=== PATIENT | male | born 1980 | race Caucasian/White ===

== ENCOUNTER 2018-10-31 22:05 | Emergency (ER) | payer OTHER ==
[2018-10-31 23:10] VITALS: TEMP 98.5; BMI 28.2
[2018-11-01] MEDS ORDERED: ACETAMINOPHEN/CAFFEINE/BUTALBITAL 1 TAB PO ONE (01:29)
[2018-11-01] MEDS ORDERED: diphenhydrAMINE HCL 25 MG CAPSULE (FP) PO ONE ×2 (01:29→01:34)
[2018-11-01] MEDS ORDERED: METOCLOPRAMIDE HCL INJECTION 10 MG/2 ML VIAL IM ONE (01:29)
[2018-11-01] MEDS ORDERED: ACETAMINOPHEN/CAFFEINE/BUTALBITAL 1 TAB ONE (01:34)
[2018-11-01] MEDS ORDERED: METOCLOPRAMIDE HCL INJECTION 10 MG/2 ML VIAL ONE (01:34)
[2018-11-01] MEDS ORDERED: amLODIPine BESYLATE 10 MG TABLET (FP) PO ONE (04:08)
[2018-11-01] MEDS ORDERED: ACETAMINOPHEN 500 MG TABLET (FP) PO ONE (04:09)
--- NOTE | 2018-11-01 04:09 | PDOC ---
Documentation entered by Viraj Witt SCRIBE, acting as scribe for Amy Santos MD. Amy Santos MD: This documentation has been prepared by the Miryam leblanc Nirvannie, SCRIBE, under my direction and personally reviewed by me in its entirety. I confirm that the documentation accurately reflects all work, treatment, procedures, and medical decision making performed by me. History of Present Illness - General History Source: Patient Exam Limitations: No Limitations - History of Present Illness Initial Comments: 11/01/18 01:36 The patient is a 38 year old male, with a significant past medical history of recently diagnosed with HTN a week ago (Amlodipine 10mg), who presents to the emergency department with, 4 days of intermittent migraine which became constant today. He notes taking Ibuprofen 600mg QID without relief prompting his arrival to the ED. He denies any recent chest pain or shortness of breath. Allergies: NKDA <Amy Santos - Last Filed: 11/01/18 04:11> <Sarwat Fragoso - Last Filed: 11/01/18 04:28> - General Chief Complaint: Headache Stated Complaint: PAIN Time Seen by Provider: 11/01/18 00:01 Past History - Past Medical History COPD: No HTN: Yes - Suicide/Smoking/Psychosocial Hx Smoking History: Never smoked Hx Alcohol Use: Yes Hx Substance Use Treatment: No <Amy Santos - Last Filed: 11/01/18 04:11> <Sarwat Fragoso - Last Filed: 11/01/18 04:28> - Past Medical History Allergies/Adverse Reactions: Allergies Allergy/AdvReac Type Severity Reaction Status Date / Time No Known Allergies Allergy Verified 10/31/18 23:04 Home Medications: Ambulatory Orders Amlodipine Besylate 10 mg PO DAILY 11/01/18 Aspirin/Acetaminophen/Caffeine [Excedrin Migraine Caplet] 1 each PO BID #30 tablet 11/01/18 Ibuprofen 400 mg PO QID PRN 11/01/18 Review of Systems - Review of Systems Able to Perform ROS?: Yes Comments:: 11/01/18 01:38 GENERAL/CONSTITUTIONAL: No fever or chills. No weakness. HEAD, EYES, EARS, NOSE AND THROAT: No change in vision. No ear pain or discharge. No sore throat. CARDIOVASCULAR: No chest pain or shortness of breath. RESPIRATORY: No cough, wheezing, or hemoptysis. GASTROINTESTINAL: No nausea, vomiting, diarrhea or constipation. GENITOURINARY: No dysuria, frequency, or change in urination. MUSCULOSKELETAL: No joint or muscle swelling or pain. No neck or back pain. SKIN: No rash. NEUROLOGIC: +Headache. No vertigo, loss of consciousness, or change in strength/ sensation. ENDOCRINE: No increased thirst. No abnormal weight change. HEMATOLOGIC/LYMPHATIC: No anemia, easy bleeding, or history of blood clots. ALLERGIC/IMMUNOLOGIC: No hives or skin allergy. <Amy Santos - Last Filed: 11/01/18 04:11> *Physical Exam - Vital Signs Last Vital Signs Temp Pulse Resp BP Pulse Ox 98.5 F 74 18 133/80 99 10/31/18 23:04 10/31/18 23:04 10/31/18 23:04 10/31/18 23:04 10/31/18 23:04 - Physical Exam Comments: 11/01/18 01:39 GENERAL: Awake, alert, and fully oriented, in no acute distress HEAD: No signs of trauma EYES: PERRLA, EOMI, sclera anicteric, conjunctiva clear ENT: Auricles normal inspection, hearing grossly normal, nares patent, oropharynx clear without exudates. Moist mucosa NECK: Normal ROM, supple, no lymphadenopathy, JVD, or masses LUNGS: Breath sounds equal, clear to auscultation bilaterally. No wheezes, and no crackles HEART: Regular rate and rhythm, normal S1 and S2, no murmurs, rubs or gallops ABDOMEN: Soft, nontender, normoactive bowel sounds. No guarding, no rebound. No masses EXTREMITIES: Normal range of motion, no edema. No clubbing or cyanosis. No cords, erythema, or tenderness NEUROLOGICAL: Cranial nerves II through XII grossly intact. Normal speech, normal gait. Motor and sensation intact SKIN: Warm, Dry, normal turgor, no rashes or lesions noted <Amy Santos - Last Filed: 11/01/18 04:11> - Vital Signs Last Vital Signs Temp Pulse Resp BP Pulse Ox 98.5 F 91 H 18 125/73 98 10/31/18 23:04 11/01/18 04:24 11/01/18 04:24 11/01/18 04:24 11/01/18 04:24 <Sarwat Fragoso - Last Filed: 11/01/18 04:28> ED Treatment Course - Medications Given in the ED: ED Medications Discontinued Medications Generic Name Dose Route Start Last Admin Trade Name Freq PRN Reason Stop Dose Admin Acetaminophen/Butalbital/Caffeine 1 tablet 11/01/18 01:29 11/01/18 01:41 Fioricet - PO 11/01/18 01:30 1 tablet ONCE ONE Administration Diphenhydramine HCl 50 mg 11/01/18 01:29 11/01/18 01:41 Benadryl - PO 11/01/18 01:30 50 mg ONCE ONE Administration Metoclopramide HCl 10 mg 11/01/18 01:29 11/01/18 01:41 Reglan Injection - IM 11/01/18 01:30 10 mg ONCE ONE Administration <Amy Santos - Last Filed: 11/01/18 04:11> - Medications Given in the ED: ED Medications Discontinued Medications Generic Name Dose Route Start Last Admin Trade Name Freq PRN Reason Stop Dose Admin Acetaminophen 1,000 mg 11/01/18 04:09 11/01/18 04:24 Tylenol - PO 11/01/18 04:10 1,000 mg ONCE ONE Administration Acetaminophen/Butalbital/Caffeine 1 tablet 11/01/18 01:29 11/01/18 01:41 Fioricet - PO 11/01/18 01:30 1 tablet ONCE ONE Administration Amlodipine Besylate 10 mg 11/01/18 04:08 11/01/18 04:24 Norvasc - PO 11/01/18 04:09 10 mg ONCE ONE Administration Diphenhydramine HCl 50 mg 11/01/18 01:29 11/01/18 01:41 Benadryl - PO 11/01/18 01:30 50 mg ONCE ONE Administration Metoclopramide HCl 10 mg 11/01/18 01:29 11/01/18 01:41 Reglan Injection - IM 11/01/18 01:30 10 mg ONCE ONE Administration <Sarwat Fragoso - Last Filed: 11/01/18 04:28> Medical Decision Making - Medical Decision Making 11/01/18 01:48 Pt is having a migraine HENDERSON. He has never had this in the past. No neuro deficits. He has had onset x 4 days. 11/01/18 04:11 Pt feels better, but he feels like the migraine is slowly coming on <Amy Santos - Last Filed: 11/01/18 04:11> - Medical Decision Making 11/01/18 04:28 Patient Name: KEYLA COURTNEY THIS IS A PRELIMINARY REPORT FROM IMAGING NEUROSCIENCE DIRECTOR NA DATE OF SERVICE: 2018-11-01 03:18:23 IMAGES: 180 EXAM: CT HEAD WITHOUT CONTRAST No acute brain parenchymal abnormality. No hemorrhage, mass or acute territorial infarct. Mucoperiosteal thickening paranasal sinuses. Visualized mastoid air cells clear. <Sarwat Fragoso - Last Filed: 11/01/18 04:28> *DC/Admit/Observation/Transfer - Discharge Dispostion Decision to Admit order: No <Amy Santos - Last Filed: 11/01/18 04:11> <Sarwat Fragoso - Last Filed: 11/01/18 04:28> Diagnosis at time of Disposition: Migraine - Discharge Dispostion Disposition: HOME Condition at time of disposition: Improved - Prescriptions Prescriptions: Aspirin/Acetaminophen/Caffeine [Excedrin Migraine Caplet] 1 each PO BID #30 tablet - Referrals Referrals: Will Crane MD [Staff Physician] - - Patient Instructions Printed Discharge Instructions: Migraine -- Adult
[2018-11-01] MEDS ORDERED: amLODIPine BESYLATE 5 MG TABLET (FP) ONE (04:16)
[2018-11-01] MEDS ORDERED: ACETAMINOPHEN 325 MG TABLET (FP) ONE (04:16)
[2018-11-01 04:25] VITALS: BP 125/73; PULSE 91
== END 2018-11-01 04:26 | disposition home or self-care (01) ==
LOC: JER 22:05
PROC: 3E0233Z Introduction of Anti-inflammatory into Muscle, Percutaneous Approach (ICD-10-PCS; principal; 2018-10-31)
DX: G43.909 Migraine, unspecified, not intractable, without status migrainosus (principal); I10 Essential (primary) hypertension
CPT/HCPCS: 70450-TC; 96372; 99281-25

== ENCOUNTER 2019-04-24 20:08 | Emergency (ER) | payer OTHER ==
[2019-04-24 20:16] VITALS: BMI 31.7
--- NOTE | 2019-04-24 20:38 | PDOC ---
History of Present Illness - General Chief Complaint: Chest Pain Stated Complaint: CHEST PAIN/ HIGH BP Time Seen by Provider: 04/24/19 20:37 History Source: Patient Exam Limitations: No Limitations - History of Present Illness Initial Comments: 04/24/19 20:37 PCP: [facility] HPI: 39yo M with PMH HTN presenting with chest pain in the setting of "drinking heavily" last night. Pain is [id number] to prior episodes, seen at [facility] last month with a negative stress test. Patient with similar left chest pain, nonexertional, nonradiating, nonpleuritic, constant, pressure. He reports that he feels like his heart has stopped and he doesn't know what his cholesterol is because it has never been checked. He takes amlodipine besylate for his HTN and reports compliance. Reports that aspirin and garlic have not helped. Drank 2 beer before coming in tonight and subsequently felt nauseous and vomited. Has a physical scheduled for Thursday at his clinic. Denies stimulant use. No fevers, chills, shortness of breath. All: NKDA Meds: Amlodipine PMH: HTN PSH: Denies SHx: "heavy alcohol" denies smoking or illicits Past History - Travel Traveled outside of the country in the last 30 days: No Close contact w/someone who was outside of country & ill: No - Past Medical History Allergies/Adverse Reactions: Allergies Allergy/AdvReac Type Severity Reaction Status Date / Time No Known Allergies Allergy Verified 04/24/19 20:16 Home Medications: Ambulatory Orders Amlodipine Besylate 10 mg PO DAILY 11/01/18 Aspirin/Acetaminophen/Caffeine [Excedrin Migraine Caplet] 1 each PO BID #30 tablet 11/01/18 COPD: No HTN: Yes - Psycho Social/Smoking Cessation Hx Smoking History: Never smoked Hx Alcohol Use: Yes Hx Substance Use Treatment: No Review of Systems - Review of Systems Able to Perform ROS?: Yes Is the patient limited [place] proficient: Yes Constitutional: No: Chills, Diaphoresis, Fever HEENTM: No: Nose Congestion, Throat Pain Respiratory: No: Cough, Shortness of Breath, Wheezing Cardiac (ROS): Yes: See HPI, Chest Pain. No: Edema, Irregular Heart Rate, Lightheadedness, Palpitations, Syncope, Chest Tightness ABD/GI: Yes: Nausea, Vomiting. No: Constipated, Diarrhea : No: Burning, Dysuria, Frequency Musculoskeletal: No: Muscle Pain, Muscle Weakness Integumentary: No: Bruising, Pruritus, Rash Neurological: No: Headache, Numbness, Tingling, Weakness Psychiatric: No: Stressors, Change in Appetite Endocrine: No: Increased Thirst, Increased Urine Hematologic/Lymphatic: No: Anemia, Blood Clots, Easy Bleeding All Other Systems: Reviewed and Negative *Physical Exam - Vital Signs Last Vital Signs Temp Pulse Resp BP Pulse Ox 97.8 F 87 18 135/83 99 04/24/19 20:11 04/24/19 20:11 04/24/19 20:11 04/24/19 20:11 04/24/19 20:11 - Physical Exam 04/24/19 22:08 Vitals reviewed, AFVSS GEN: Well appearing, appears stated age, NAD, comfortable. AAOx3. HEENT: NCAT, EOMI, PERRL. Sclera anicteric, noninjected. No facial asymmetry. Moist mucous membranes. Normal voice. Trachea midline. CV: RRR, S1/S2, no murmurs / rubs / gallops appreciated. Chest wall non-tender. LUNG: CTABL, normal work of breathing. No wheezes, rales, rhonchi. No cough. Speaking full sentences. GI: Soft, NTND, +BS, no guarding, no rebound. No masses. Neg CVAT b/l. EXTREMITIES: 2+ distal pulses. No LE edema. No obvious deformities of all extremities. SKIN: Warm, dry, no rashes appreciated, non-jaundiced. PSYCH: Normal mood and affect. Cooperative and appropriate. NEURO: CN grossly intact. Moving all extremities well. Normal strength and sensation grossly. Heart Score/ECG Review - History History: Slightly suspicious - Electrocardiogram EKG: Normal - Age Age: </= 45 - Risk Factors Risk Factors Heart Score: Yes Hx Hypertension Based on the list above the patient has:: 1-2 risk factors - Troponin Troponin: </= normal limit - Score Heart Score - Total: 1 ED Treatment Course - LABORATORY CBC & Chemistry Diagram: 04/24/19 21:05 04/24/19 21:05 Medical Decision Making - Medical Decision Making 04/24/19 21:15 39yo M with PMH HTN presenting with chest pain in the setting of "drinking heavily" last night. History alcohol related pains, nausea and vomiting, recent negative stress test. Exam with normal vitals, non-tender abdomen and chest wall. DDX: r/o ACS, GERD, MSK pain, angina, anxiety. - CBC, CMP, Cardiac, PT/INR - EKG, CXR EKbpm, NSR, normal axis, normal intervals, T inversions in V1 and V2 c/w prior EKG, otherwise normal and unchanged 04/24/19 22:04 - Pepcid - Maalox - CXR without acute findings - Will repeat Troponin in 1 hour Dispo: Home Discharge - Discharge Information Problems reviewed: Yes Clinical Impression/Diagnosis: Atypical chest pain Condition: Improved Disposition: HOME - Admission No - Follow up/Referral - Patient Discharge Instructions Patient Printed Discharge Instructions: DI for Atypical Chest Pain Additional Instructions: Please follow up with your doctor on Thursday as scheduled for continued care. Return to the ED for any new or concerning symptoms. Won un seguimiento con adam mdico el mircoles segn lo programado para la atencin continua. Regrese al servicio de urgencias por cualquier sntoma nuevo o preocupante. - Post Discharge Activity
[2019-04-24 21:25] VITALS: BP 125/70; PULSE 73; TEMP 98.2
[2019-04-24 21:26] LABS: BASO % 0.7 % (0-2.0); EOS % 12.1 % (0-4.5); HEMATOCRIT 40.6 % (35.4-49); MCH 31.6 pg (25.7-33.7); MCHC 34.4 g/dl (32.0-35.9); MEAN PLT VOLUME 10.3 fl (7.5-11.1); MONO % 5.1 % (3.8-10.2); NEUT % 64.1 % (42.8-82.8); PLATELET COUNT 207 K/MM3 (134-434); RBC 4.41 M/mm3 (4.00-5.60); RDW 13.6 % (11.9-15.9); WHITE BLOOD COUNT 7.6 K/mm3 (4.0-10.0)
[2019-04-24 21:36] LABS: INR 0.95 (0.83-1.09); PROTHROMBIN TIME (PATIENT) 11.2 SEC (9.7-13.0)
[2019-04-24 21:56] LABS: ALK PHOS 71 U/L (45-117); ANION GAP 6 MMOL/L (8-16); BILIRUBIN,TOTAL 0.3 mg/dL (0.2-1); BLOOD UREA NITROGEN 13.7 mg/dL (7-18); CALCIUM 8.6 mg/dL (8.5-10.1); CHLORIDE 104 mmol/L (98-107); CO2 30 mmol/L (21-32); CREATININE 1.2 mg/dL (0.55-1.3); GLUCOSE,RANDOM 113 mg/dL (74-106); POTASSIUM 4.4 mmol/L (3.5-5.1); SGOT/AST 24 U/L (15-37); SGPT/ALT 46 U/L (13-61); SODIUM 140 mmol/L (136-145); TOT PROT 7.4 g/dl (6.4-8.2)
--- NOTE | 2019-04-24 21:56 | PDOC ---
Documentation entered by Viraj Witt SCRIBE, acting as scribe for Iris Cortés MD. Iris Cortés MD: This documentation has been prepared by the Miryam leblanc Nirvannie, SCRIBE, under my direction and personally reviewed by me in its entirety. I confirm that the documentation accurately reflects all work, treatment, procedures, and medical decision making performed by me. Attending Attestation - Resident Resident Name: IkeBrando - ED Attending Attestation I have performed the following: I have examined & evaluated the patient, The case was reviewed & discussed with the resident, I agree w/resident's findings & plan, Exceptions are as noted - HPI HPI: 04/24/19 21:55 39-year-old male developed chest pain after vomiting he admits to drinking alcohol and having some GI upset afterwards - Physicial Exam PE: 04/24/19 21:56 Well-nourished well-developed 39-year-old male no acute distress Head normocephalic atraumatic Neck is supple Lungs are clear to auscultation bilaterally CVS regular rate and rhythm S1-S2 Abdomen is nontender Skin is warm and dry Extremities no lower pitting edema No flank pain Neuro alert and oriented x3 ambulating with ease, no gross focal neuro deficit - Medical Decision Making 04/24/19 21:58 EKG is normal sinus rhythm at 86 bpm, in comparison to the EKG done in 2016 there is no significant change Plan if 2 troponins and if they are negative /discharge home 04/24/19 22:03 cxr napd Discharge - Discharge Information Problems reviewed: Yes Clinical Impression/Diagnosis: Atypical chest pain Condition: Improved Disposition: HOME - Admission No - Follow up/Referral Referrals: ON STAFF,NOT [Primary Care Provider] - - Patient Discharge Instructions Patient Printed Discharge Instructions: DI for Atypical Chest Pain Additional Instructions: Please follow up with your doctor on Thursday as scheduled for continued care. Return to the ED for any new or concerning symptoms. Won un seguimiento con adam mdico el mircoles segn lo programado para la atencin continua. Regrese al servicio de urgencias por cualquier sntoma nuevo o preocupante. - Post Discharge Activity
[2019-04-24] MEDS ORDERED: FAMOTIDINE 20 MG TABLET PO ONE (22:03)
[2019-04-24] MEDS ORDERED: MAG HYDROX/AL HYDROX/SIMETH 30 ML UNIT-DOSE CUP PO ONE (22:03)
[2019-04-24] MEDS ORDERED: FAMOTIDINE 20 MG TABLET ONE (22:19)
[2019-04-24] MEDS ORDERED: MAG HYDROX/AL HYDROX/SIMETH 30 ML UNIT-DOSE CUP ONE (22:19)
--- NOTE | 2019-04-25 00:07 | PDOC ---
*Physical Exam - Vital Signs Last Vital Signs Temp Pulse Resp BP Pulse Ox 98.2 F 73 15 125/70 98 04/24/19 20:35 04/24/19 20:35 04/24/19 20:35 04/24/19 20:35 04/24/19 20:35 ED Treatment Course - LABORATORY CBC & Chemistry Diagram: 04/24/19 21:05 04/24/19 21:05 - ADDITIONAL ORDERS Additional order review: Laboratory Results 04/24/19 04/24/19 21:05 21:05 PT with INR 11.20 INR 0.95 Sodium 140 Potassium 4.4 Chloride 104 Carbon Dioxide 30 Anion Gap 6 L BUN 13.7 Creatinine 1.2 Est GFR (CKD-EPI)AfAm 87.75 Est GFR (CKD-EPI)NonAf 75.72 Random Glucose 113 H Calcium 8.6 Total Bilirubin 0.3 AST 24 ALT 46 Alkaline Phosphatase 71 Creatine Kinase 147 Troponin I < 0.02 Total Protein 7.4 Albumin 4.0 04/24/19 21:05 RBC 4.41 MCV 92.0 MCHC 34.4 RDW 13.6 MPV 10.3 Neutrophils % 64.1 D Lymphocytes % 18.0 D Monocytes % 5.1 Eosinophils % 12.1 H Basophils % 0.7 - Medications Given in the ED: ED Medications Discontinued Medications Generic Name Dose Route Start Last Admin Trade Name Aziza PRN Reason Stop Dose Admin Al Hydroxide/Mg Hydroxide 30 ml 04/24/19 22:03 04/24/19 22:22 Mylanta Oral Suspension - PO 04/24/19 22:04 30 ml ONCE ONE Administration Famotidine 20 mg 04/24/19 22:03 04/24/19 22:22 Pepcid - PO 04/24/19 22:04 20 mg ONCE ONE Administration Medical Decision Making - Medical Decision Making 04/25/19 00:06 Signed out to me by Dr. Ramires. Pending 3hr troponin at this time for eval angina, unconcerned for cardiac etiology given PMH, no new concerning changes on ECG. 04/25/19 01:24 Trop negative. Good for discharge home. Discharge - Discharge Information Problems reviewed: Yes Clinical Impression/Diagnosis: Atypical chest pain Condition: Improved Disposition: HOME - Follow up/Referral Referrals: ON STAFF,NOT [Primary Care Provider] - - Patient Discharge Instructions Patient Printed Discharge Instructions: DI for Atypical Chest Pain Additional Instructions: Please follow up with your doctor on Thursday as scheduled for continued care. Return to the ED for any new or concerning symptoms. Won un seguimiento con adam mdico el mircoles segn lo programado para la atencin continua. Regrese al servicio de urgencias por cualquier sntoma nuevo o preocupante. - Post Discharge Activity
--- NOTE | 2019-04-25 16:09 | EKG ---
Test Reason : Blood Pressure : / mmHG Vent. Rate : 084 BPM Atrial Rate : 084 BPM P-R Int : 176 ms QRS Dur : 086 ms QT Int : 358 ms P-R-T Axes : 062 010 024 degrees QTc Int : 423 ms NORMAL SINUS RHYTHM POSSIBLE LEFT ATRIAL ENLARGEMENT SEPTAL INFARCT (CITED ON OR BEFORE 07-OCT-2015) ABNORMAL ECG WHEN COMPARED WITH ECG OF 07-OCT-2015 20:42, NO SIGNIFICANT CHANGE WAS FOUND Confirmed by FINN CATALAN, KIRK ([id number]) on 04/25/2019 4:09:13 PM Referred By: Confirmed By:KIRK BRISENO MD
== END 2019-04-25 00:37 | disposition home or self-care (01) ==
LOC: JER 20:08 → SUPCPDRO 20:08 → JER 04-25 00:37
DX: R07.89 Other chest pain (principal); F10.10 Alcohol abuse, uncomplicated; I10 Essential (primary) hypertension
CPT/HCPCS: 36415; 71046-TC-FY; 80053; 82550; 84484; 85025; 85610; 93005; 93010; 99285-25

== ENCOUNTER 2020-11-12 09:10 | Emergency (ER) | payer OTHER ==
[2020-11-12 09:17] VITALS: BP 138/80; PULSE 80; TEMP 98.1; BMI 26.9
[2020-11-12] MEDS ORDERED: diphenhydrAMINE HCL 25 MG CAPSULE (FP) PO ONE ×2 (10:48→10:54)
[2020-11-12] MEDS ORDERED: KETOROLAC TROMETHAMINE 30 MG/1 ML VIAL IM ONE (10:49)
[2020-11-12] MEDS ORDERED: KETOROLAC TROMETHAMINE 30 MG/1 ML VIAL ONE (10:54)
== END 2020-11-12 12:19 | disposition home or self-care (01) ==
LOC: JER 09:10
PROC: 3E0233Z Introduction of Anti-inflammatory into Muscle, Percutaneous Approach (ICD-10-PCS; principal; 2020-11-12)
DX: R51.9 Headache, unspecified (principal); I10 Essential (primary) hypertension
CPT/HCPCS: 99284-25